=== PATIENT | male | born 1965 | race Caucasian/White ===

== ENCOUNTER 2023-08-14 09:35 | Outpatient (OUT) | payer BC, SELFPAY ==
--- NOTE | 2023-08-14 09:50 | CA_ITS ---
[facility] Test Date: 2023-08-30 Pat Name: JAM CAMARILLO Department: Room: - Gender: Male Cash Poster: : 1965 Requested By: GIOVANY SCHMID Order Number: [id number] Reading MD: MARIAELENA DUTTA Interpretive Statements Predominant rhythm is sinus with average rate of 68 bpm Tachycardia - max rate of 202 (PSVT) - 8 episodes of PSVT with logest duration 28 beats - longest episode of 33min 5sec with rates between 125-137 bpm Bradycardia - min rate of 44 bpm - longest episode of 3h 2min 20sec with rates between 48-57 bpm Ventricular ectopy - 2,957 total (<1%) - 2,903 PVC - 30 couplets - 18 bigeminy - 3 trigeminy Patient triggered events: 8 - associated with symptoms of palpitations, SOB - associated with NSR - associated with PAT, PVC Impression: Predominant rhythm is sinus with average rate of 68 bpm Fastest rate of 202 bpm and slowest rate of 44 bpm 2,903 PVC, 30 couplets, 18 bigeminy and 3 trigeminy No atrial fibrillation No blocks or pauses Electronically Signed On 09-01-2023 7:17:20 EST by MARIAELENA DUTTA
== END 2023-08-14 09:36 | disposition home or self-care (01) ==
LOC: CARD 09:40
PROVIDERS: PCP Family Medicine; Visit Provider Family Medicine
DX: R00.2 Palpitations (principal)
CPT/HCPCS: 93242